=== PATIENT | female | born 1945 | race Caucasian/White ===

== ENCOUNTER 2018-09-27 10:14 | Outpatient (CLI) | payer MEDICARE, OTHER ==
--- NOTE | 2018-10-09 13:19 | MMO ---
Bilateral MAMMO Bilat Screen [facility]. CLINICAL HISTORY: Patient is 73 years old and is seen for screening. The patient has the following family history of breast cancer: mother, 1989, malignant (generic). The patient has a history of right Mastectomy in 1998 - malignant. VIEWS: The views performed were: left craniocaudal with tomosynthesis; left mediolateral oblique with tomosynthesis; and left exaggerated craniocaudal. FILMS COMPARED: The present examination has been compared to prior imaging studies performed at [facility] on 08/10/2011, 08/11/2012, 08/13/2013, 08/14/2014, 08/20/2015, 08/25/2016 and 09/21/2017. MAMMOGRAM FINDINGS: The breast is heterogeneously dense, which could obscure a lesion on mammography. There are benign appearing calcifications. There are no suspicious masses, calcifications or areas of architectural distortion. Nodularity is stable. IMPRESSION: FINDING IN THE LEFT BREAST IS BENIGN. A ROUTINE FOLLOW-UP MAMMOGRAM IN 1 YEAR IS RECOMMENDED. THE RESULTS OF THIS EXAM WERE SENT TO THE PATIENT. ACR BI-RADS Category 2 - Benign finding MAMMOGRAPHY NOTE: 1. A negative mammogram report should not delay a biopsy if a dominant of clinically suspicious mass is present. 2. Approximately 10% to 15% of breast cancers are not detected by mammography. 3. Adenosis and dense breasts may obscure an underlying neoplasm.
== END 2018-09-27 10:15 | disposition home or self-care (01) ==
LOC: BICMAMMO 10:14
PROVIDERS: ATTEND Nurse Practitioner
DX: Z12.31 Encounter for screening mammogram for malignant neoplasm of breast (principal); Z80.3 Family history of malignant neoplasm of breast; Z90.11 Acquired absence of right breast and nipple
CPT/HCPCS: 77063; 77067

== ENCOUNTER 2019-04-18 09:45 | Outpatient (CLI) | payer MEDICARE ==
--- NOTE | 2019-04-18 12:02 | BD ---
BONE DENSITOMETRY: Date: 04/18/19 HISTORY: Postmenopausal osteoporosis screening. FINDINGS: Lumbar Spine: BMD (g/cm2) L1 1.055 T-Score: 0.6 L2 1.106 T-Score: 0.7 L3 1.210 T-Score: 1.1 L4 1.101 T-Score: 0.4 Total 1.119 T-Score: 0.7 Left Femoral Neck: 0.679 T-Score: -1.5 Total Femur: 0.905 T-Score: -0.3 IMPRESSION: 1. Bone mineral density of the lumbar spine within normal range. 2. Bone mineral density of the femoral neck indicates osteopenia. 10 YEAR FRACTURE RISK: Major osteoporotic fracture: 9.5% Hip fracture: 1.8% POS: OFF
== END 2019-04-18 09:46 | disposition home or self-care (01) ==
LOC: BICMAMMO 09:45
PROVIDERS: ATTEND Nurse Practitioner
DX: M81.0 Age-related osteoporosis without current pathological fracture (principal); M85.859 Other specified disorders of bone density and structure, unspecified thigh
CPT/HCPCS: 77080

== ENCOUNTER 2019-10-01 10:28 | Outpatient (CLI) | payer MEDICARE ==
--- NOTE | 2019-10-01 11:42 | MMO ---
Bilateral MAMMO Bilat Screen [facility]. CLINICAL HISTORY: Patient is 74 years old and is seen for screening. The patient has the following family history of breast cancer: mother, 1989, malignant (generic). The patient has a history of right Mastectomy in 1998 - malignant. VIEWS: The views performed were: bilateral craniocaudal with tomosynthesis and bilateral mediolateral oblique with tomosynthesis. FILMS COMPARED: The present examination has been compared to prior imaging studies performed at [facility] on 08/20/2015, 08/25/2016 and 09/21/2017, and at [facility] on 09/27/2018. This study has been interpreted with the assistance of computer-aided detection. MAMMOGRAM FINDINGS: The breast is heterogeneously dense, which could obscure a lesion on mammography. There are stable benign appearing calcifications seen in the left breast. There are no suspicious masses, suspicious calcifications, or new areas of architectural distortion. IMPRESSION: THERE IS NO MAMMOGRAPHIC EVIDENCE OF MALIGNANCY. A ROUTINE FOLLOW-UP MAMMOGRAM IN 1 YEAR IS RECOMMENDED. THE RESULTS OF THIS EXAM WERE SENT TO THE PATIENT. ACR BI-RADS Category 2 - Benign finding MAMMOGRAPHY NOTE: 1. A negative mammogram report should not delay a biopsy if a dominant of clinically suspicious mass is present. 2. Approximately 10% to 15% of breast cancers are not detected by mammography. 3. Adenosis and dense breasts may obscure an underlying neoplasm. Reported by: ANGEL LUIS BUSTAMANTE MD Electonically Signed: [id number]
== END 2019-10-01 10:29 | disposition home or self-care (01) ==
LOC: BICMAMMO 10:28
PROVIDERS: ATTEND Nurse Practitioner
DX: Z12.31 Encounter for screening mammogram for malignant neoplasm of breast (principal); Z85.3 Personal history of malignant neoplasm of breast; Z90.11 Acquired absence of right breast and nipple
CPT/HCPCS: 77063; 77067

== ENCOUNTER 2020-10-09 10:40 | Outpatient (CLI) | payer MEDICARE | END 2020-10-09 10:41 | disposition home or self-care (01) | LOC: BICMAMMO 10:40 | PROVIDERS: ATTEND Nurse Practitioner | DX: Z12.31 Encounter for screening mammogram for malignant neoplasm of breast (principal); Z80.3 Family history of malignant neoplasm of breast; Z90.11 Acquired absence of right breast and nipple | CPT/HCPCS: 77063; 77067 ==

== ENCOUNTER 2021-05-05 10:51 | Outpatient (CLI) | payer MEDICARE | END 2021-05-05 10:52 | disposition home or self-care (01) | LOC: BICMAMMO 10:51 | PROVIDERS: ATTEND Nurse Practitioner | DX: Z13.820 Encounter for screening for osteoporosis (principal); Z78.0 Asymptomatic menopausal state; M85.851 Other specified disorders of bone density and structure, right thigh; M85.852 Other specified disorders of bone density and structure, left thigh | CPT/HCPCS: 77080 ==

== ENCOUNTER 2022-08-09 19:50 | Inpatient (IN) | payer MEDICARE ==
[2022-08-09] MEDS ORDERED: Ondansetron PF 4 MG/2 ML Vial IVP PRN (21:15)
[2022-08-09] MEDS ORDERED: Acetaminophen 325 MG TAB PO PRN (21:15)
[2022-08-09] MEDS ORDERED: Ondansetron ODT 4 MG TAB SL PRN (21:15)
[2022-08-09] MEDS ORDERED: Nitroglycerin 0.4 MG TAB (25 Tab Bottle) SL PRN (21:29)
[2022-08-09] MEDS ORDERED: HYDROcodone/Acetaminophen 5/325 mg Tablet PO PRN (21:29)
[2022-08-09] MEDS ORDERED: hydrALAZINE 20 MG/ML VIAL SLOW IVP PRN (21:36)
[2022-08-09] MEDS ORDERED: Metoprolol Tartrate 25 MG TAB PO SCH (21:36)
[2022-08-09] MEDS ORDERED: Losartan 25 MG TAB PO SCH (22:15)
[2022-08-09 22:28] VITALS: BMI 18.7
[2022-08-09] MEDS ORDERED: Atorvastatin Calcium 40 MG TAB PO SCH (23:00)
[2022-08-09] MEDS ORDERED: Acetaminophen 325 MG TAB ONE (23:35)
[2022-08-10 00:18] LABS: Critical Call Chem Troponin I RESULT DECREASING; Troponin I 0.824 ng/mL (< 0.028)
[2022-08-10 02:40] LABS: #Basophils 0.1 thou/uL (0.0-0.2); #Eosinphils 0.1 thou/uL (0.0-0.7); #Lymphocytes 1.9 thou/uL (1.20-3.40); #Monocytes 0.7 thou/uL (0.11-0.59); #Neutrophils 6.7 thou/uL (1.40-6.50); %Basophils 0.7 % (0.0-1.0); %Eosinophils 0.9 % (0.0-10.0); %Lymphocytes 20.3 % (21.0-51.0); %Monocytes 7.8 % (0.0-10.0); %Neutrophils 70.3 % (42.0-75.0); Hemoglobin 10.3 g/dL (12.0-16.0); Mean Corpuscular HGB CONC 33.3 g/dL (32.0-36.0); Mean Corpuscular Hemoglobin 31.8 pg (27.0-31.0); Mean Corpuscular Volume 95.4 fl (78.0-98.0); Mean Platelet Volume 7.5 fL (7.4-10.4); Platelet Count 282 10x3/uL (130-400); RBC Distribution Width 13.3 % (11.5-14.5); Red Blood Cell (RBC) Count 3.24 mill/uL (4.20-5.40); White Blood Cell (WBC) Count 9.5 10x3/uL (4.8-10.8)
[2022-08-10 03:06] LABS: Critical Call Chem Troponin I RESULT DECREASING; Troponin I 0.637 ng/mL (< 0.028)
[2022-08-10 03:07] LABS: Anion Gap 13 mmol/L (10-20); BUN (Urea Nitrogen) 23 mg/dL (9.8-20.1); Calc. Creatinine Clearance 51 mL/min (70-130); Carbon Dioxide 24 mmol/L (23-31); Cardiac Risk 6.6 (Less than 4.5); Chloride 105 mmol/L (98-107); Cholesterol 159 mg/dl (< 200 Desired); Estimated GFR 79; Glucose 95 mg/dL (83-110); HDL Cholesterol 24 mg/dL (>60 Neg Risk); LDL Cholesterol, Calculated 108 mg/dL; Sodium 138 mmol/L (136-145); Triglycerides 133 mg/dL (Less than 150)
[2022-08-10 03:56] LABS: SARS-CoV-2 NAA Rapid Test Not Detected (NotDetected)
[2022-08-10 07:15] LABS: Critical Call Chem Troponin I RESULT DECREASING; Troponin I 0.617 ng/mL (< 0.028)
[2022-08-10] MEDS ORDERED: Losartan 25 MG TAB PO SCH (09:00)
[2022-08-10] MEDS ORDERED: Metoprolol Tartrate 25 MG TAB PO SCH (09:00)
[2022-08-10] MEDS ORDERED: Aspirin Chewable 81 MG TAB ONE (09:28)
[2022-08-10] MEDS ORDERED: Metoprolol Tartrate 25 MG TAB ONE (09:28)
[2022-08-10] MEDS ORDERED: Famotidine 20 MG TAB ONE (09:28)
[2022-08-10] MEDS ORDERED: ALTEPLASE 50 MG/50 ML VIAL ONE (09:28)
[2022-08-10] MEDS: Aspirin Chewable 81 MG TAB PO SCH (09:37)
[2022-08-10] MEDS: Famotidine 20 MG TAB PO SCH (09:38)
[2022-08-10 10:18] LABS: Critical Call Chem Troponin I RESULT DECREASING
[2022-08-10] MEDS: Ezetimibe 10 MG TAB PO SCH (10:45)
[2022-08-10] MEDS ORDERED: Carvedilol 6.25 MG TAB PO SCH (18:00)
[2022-08-10] MEDS ORDERED: Communication Order-Pharmacy FS SCH (18:00)
[2022-08-10] MEDS: Atorvastatin Calcium 40 MG TAB PO SCH (20:41)
[2022-08-10] MEDS ORDERED: Atorvastatin Calcium 40 MG TAB PO SCH (21:00)
[2022-08-11] MEDS ORDERED: Sodium Chloride 0.9% 1,000 ML IV SCH ×2 (06:00→08:26)
[2022-08-11] MEDS: Aspirin Chewable 81 MG TAB PO SCH (06:01)
[2022-08-11] MEDS: Carvedilol 6.25 MG TAB PO SCH ×2 (06:01→16:29)
[2022-08-11] MEDS: Famotidine 20 MG TAB PO SCH (06:02)
[2022-08-11] MEDS: Ezetimibe 10 MG TAB PO SCH (06:02)
[2022-08-11] MEDS: Losartan 25 MG TAB PO SCH (06:02)
[2022-08-11] MEDS ORDERED: Lidocaine 1% (PF) 30 ML VIAL ONE (06:34)
[2022-08-11] MEDS ORDERED: Nitroglycerin 100MG/250ML BOT 250 ML ONE (06:34)
[2022-08-11] MEDS ORDERED: Heparin 10,000 UNITS/ 10 ML VIAL ONE (06:34)
[2022-08-11] MEDS ORDERED: FENTANYL 50 MCG/ML 1 ML VIAL ONE (07:00)
[2022-08-11] MEDS ORDERED: Midazolam HCl 2 mg/2 ml Vial ONE (07:00)
[2022-08-11] MEDS ORDERED: Protamine Sulfate 50 MG/5 ML VIAL ONE (08:04)
[2022-08-11] MEDS ORDERED: Acetaminophen/Codeine 30-300mg Tablet PO PRN ×2 (08:24)
[2022-08-11] MEDS ORDERED: Nitroglycerin 0.4 MG TAB (25 Tab Bottle) SL PRN (08:24)
[2022-08-11] MEDS ORDERED: Sodium Chloride 0.9% 200 ML IV PRN (08:24)
[2022-08-11] MEDS ORDERED: Iopamidol 370 76% 50 ML VIAL FS ONE (12:47)
[2022-08-11] MEDS ORDERED: Iopamidol 370 76% 100 ML VIAL ONE (12:47)
[2022-08-11] MEDS: Nitroglycerin 2% Ointment 1 INCH/1 GM Packet TOP SCH ×2 (14:15→22:14)
[2022-08-11 18:21] LABS: Bacteria/HPF None Seen HPF (None Seen); Bilirubin Negative (Negative); Blood, Urine Negative (Negative); CAUTI Indications for Culture Acute Hematuria; Clarity Clear (Clear); Glucose, Urine (Dipstick) Normal (Negative); Ketone, Urine Negative (Negative); Leukocyte 75 Leu/uL (Negative); Nitrite Negative (Negative); Protein, Urine (Dipstick) Negative (Neg-Trace); RBC/HPF 0-3 HPF (0-3); Squamous Epithelial 0-3 HPF (0-3); Urobilinogen Normal mg/dL (Less than 2); WBC/HPF 0-3 HPF (0-3)
[2022-08-11 18:25] LABS: Urine Culture Reflex No No
[2022-08-11] MEDS ORDERED: Communication Order-Pharmacy FS SCH (18:31)
[2022-08-11] MEDS: Atorvastatin Calcium 40 MG TAB PO SCH (21:17)
[2022-08-11] MEDS ORDERED: hydrOXYzine Pamoate 25 mg Capsule PO SCH (23:45)
[2022-08-12 02:27] LABS: Anion Gap 16 mmol/L (10-20); BUN (Urea Nitrogen) 18 mg/dL (9.8-20.1); Calc. Creatinine Clearance 51 mL/min (70-130); Calcium 9.1 mg/dL (7.8-10.44); Carbon Dioxide 22 mmol/L (23-31); Chloride 105 mmol/L (98-107); Estimated GFR 79; Glucose 107 mg/dL (83-110); Potassium 3.7 mmol/L (3.5-5.1); Sodium 139 mmol/L (136-145)
[2022-08-12 02:33] LABS: Troponin I 0.257 ng/mL (< 0.028)
[2022-08-12] MEDS: Nitroglycerin 2% Ointment 1 INCH/1 GM Packet TOP SCH (06:30)
[2022-08-12] MEDS: Carvedilol 6.25 MG TAB PO SCH (06:31)
[2022-08-12] MEDS: Losartan 25 MG TAB PO SCH (06:31)
[2022-08-12] MEDS ORDERED: Albumin 5% 500 ML ONE (07:09)
[2022-08-12] MEDS ORDERED: CEFAZOLIN 2 GM in Sodium Chloride 0.9% 100 ML IVPB SCH (09:00)
[2022-08-12] MEDS ORDERED: Heparin 10,000 UNITS/1 ML VIAL 30,000 UNITS in Sodium Chloride 0.9% 1,000 ML FS SCH (09:30)
[2022-08-12] MEDS ORDERED: Fentanyl 250 MCG/5 ML VIAL ONE ×3 (09:38)
[2022-08-12] MEDS ORDERED: Midazolam HCl 5 mg/5 ml Vial ONE (09:39)
[2022-08-12] MEDS ORDERED: Lidocaine 1% MPF 2 ML VIAL ONE (09:58)
[2022-08-12] MEDS ORDERED: Sodium Chloride 0.9% 100 ML ONE (10:07)
[2022-08-12] MEDS ORDERED: CEFAZOLIN 2 GM VIAL ONE (10:07)
[2022-08-12] MEDS ORDERED: Sodium Bicarb 50 MEQ/50 ML VIAL ONE (10:40)
[2022-08-12] MEDS ORDERED: Papaverine 60 MG/2 ML VIAL ONE (10:40)
[2022-08-12] MEDS ORDERED: Thrombin 5000 UNITS/5 ML VIAL ONE (10:40)
[2022-08-12] MEDS ORDERED: Protamine Sulfate 250 MG/25 ML VIAL ONE (10:40)
[2022-08-12] MEDS ORDERED: Magnesium 5 GM/10 ML VIAL ONE (10:40)
[2022-08-12] MEDS ORDERED: PROPOFOL 200 MG/20 ML VIAL ONE (10:40)
[2022-08-12] MEDS ORDERED: Mannitol 12.5 GM/50 ML ONE (10:40)
[2022-08-12] MEDS ORDERED: Lidocaine 2% PF 100 mg/5 ml Syringe ONE (10:40)
[2022-08-12] MEDS ORDERED: Calcium Chloride 1 GM/10 ML Abboject SYRINGE ONE (10:40)
[2022-08-12] MEDS ORDERED: ePHEDrine 50 MG/ML VIAL ONE (10:40)
[2022-08-12] MEDS ORDERED: Heparin 30,000 units/30 ml VIAL ONE (10:40)
[2022-08-12] MEDS ORDERED: Rocuronium Bromide 10 MG/ML (10ML VIAL) ONE (10:40)
[2022-08-12] MEDS ORDERED: Vancomycin 1 GM VIAL ONE (10:40)
[2022-08-12] MEDS ORDERED: Potassium Chloride 60 MEQ/30 ML VIAL ONE (10:40)
[2022-08-12] MEDS ORDERED: Lidocaine 1% PF 5 ML VIAL ONE (10:40)
[2022-08-12] MEDS ORDERED: Heparin 5,000 UNITS/ML VIAL ONE (10:40)
[2022-08-12] MEDS ORDERED: PHENYLEPHRINE-NS 100 MCG/ML 10 ML SYRINGE ONE (10:40)
[2022-08-12] MEDS ORDERED: Aminocaproic Acid 5 GM/20 ML VIAL ONE (10:40)
[2022-08-12] MEDS ORDERED: Cardioplegic Soln 1,000 ML BAG ONE (10:40)
[2022-08-12] MEDS ORDERED: Bisacodyl 10 MG SUPP PR PRN (14:05)
[2022-08-12] MEDS ORDERED: Ipratropium/Albuterol 3 ML NEB NEB PRN (14:05)
[2022-08-12] MEDS ORDERED: NOREPINEPHRINE 8 MG/250 ML-D5W 250 ML IVPB PRN (14:05)
[2022-08-12] MEDS ORDERED: HYDROcodone/Acetaminophen 5/325 mg Tablet PO PRN (14:05)
[2022-08-12] MEDS ORDERED: Acetaminophen 325 MG TAB PO PRN (14:05)
[2022-08-12] MEDS ORDERED: Bisacodyl 5 MG TAB PO PRN (14:05)
[2022-08-12] MEDS ORDERED: Guaifenesin DM 100-10/5 ML UDCUP PO PRN (14:05)
[2022-08-12] MEDS ORDERED: niCARdipine 25 MG in Sodium Chloride 0.9% 250 ML 250 ML IVPB PRN (14:05)
[2022-08-12] MEDS ORDERED: Mag-Al 1200 mg/1200 mg/30 ML UDCUP PO PRN (14:05)
[2022-08-12] MEDS ORDERED: Fentanyl 100 MCG/2 ML VIAL SLOW IVP PRN (14:05)
[2022-08-12] MEDS ORDERED: hydrALAZINE 20 MG/ML VIAL SLOW IVP PRN (14:05)
[2022-08-12] MEDS ORDERED: Ondansetron PF 4 MG/2 ML Vial IVP PRN (14:05)
[2022-08-12] MEDS ORDERED: Hetastarch 6% 500 ML 500 ML IVPB PRN (14:05)
[2022-08-12 14:22] LABS: Actual Bicarbonate (HCO3a) 20.7 mEq/L (22-28); Base Excess (BEa) -3.7 mEq/L (-2.0 to +3.0); CO2 Tension 35.6 mmHg (35.0-45.0); Calcium, Ionized (arterial) 1.24 mmol/L (1.12-1.30); O2 Tension (PaO2), arterial 235.1 mmHg (> 70.0); pH, Arterial 7.38 (7.35-7.45)
[2022-08-12 14:25] LABS: Puncture Site Arterial Line
[2022-08-12 14:30] LABS: #Basophils 0.1 thou/uL (0.0-0.2); #Eosinphils 0.2 thou/uL (0.0-0.7); #Lymphocytes 2.2 thou/uL (1.20-3.40); #Monocytes 0.5 thou/uL (0.11-0.59); %Basophils 0.7 % (0.0-1.0); %Eosinophils 1.1 % (0.0-10.0); %Lymphocytes 14.8 % (21.0-51.0); %Monocytes 3.1 % (0.0-10.0); %Neutrophils 80.3 % (42.0-75.0); Hemoglobin 10.6 g/dL (12.0-16.0); Mean Corpuscular HGB CONC 33.1 g/dL (32.0-36.0); Mean Corpuscular Hemoglobin 31.3 pg (27.0-31.0); Mean Corpuscular Volume 94.6 fl (78.0-98.0); Mean Platelet Volume 8.3 fL (7.4-10.4); Platelet Count 154 10x3/uL (130-400); RBC Distribution Width 13.7 % (11.5-14.5); Red Blood Cell (RBC) Count 3.38 mill/uL (4.20-5.40); White Blood Cell (WBC) Count 14.9 10x3/uL (4.8-10.8)
[2022-08-12] MEDS ORDERED: HUMULIN R 100 UNITS in Sodium Chloride 0.9% 100 ML IVPB SCH (14:30)
[2022-08-12] MEDS ORDERED: Dextrose 5% in Water 1,000 ML IV PRN (14:30)
[2022-08-12] MEDS ORDERED: Insulin Regular 300 UNITS/3 ML VIAL SC PRN (14:30)
[2022-08-12] MEDS ORDERED: Dextrose 50% Abboject 50 ML SYRINGE SLOW IVP PRN (14:30)
[2022-08-12] MEDS: Morphine 4 MG/ML VIAL SLOW IVP PRN ×2 (14:35→15:45)
[2022-08-12 14:41] LABS: INR-International Normal Ratio 1.4; Prothrombin Time 17.8 sec (12.0-14.7)
[2022-08-12 14:42] LABS: PTT 30.6 sec (22.9-36.1)
[2022-08-12 14:47] LABS: Anion Gap 14 mmol/L (10-20); BUN (Urea Nitrogen) 14 mg/dL (9.8-20.1); Calc. Creatinine Clearance 60 mL/min (70-130); Calcium 8.5 mg/dL (7.8-10.44); Carbon Dioxide 19 mmol/L (23-31); Chloride 110 mmol/L (98-107); Estimated GFR 92; Glucose 104 mg/dL (83-110); Potassium 3.7 mmol/L (3.5-5.1); Sodium 139 mmol/L (136-145)
[2022-08-12] MEDS: Fentanyl 100 MCG/2 ML VIAL SLOW IVP PRN ×3 (14:53→19:24)
[2022-08-12] MEDS: Lactated Ringer's 500 ML IV SCH (14:56)
[2022-08-12] MEDS: Potassium Chloride 20 MEQ/100 ML PREMIX BAG IVPB PRN (16:04)
[2022-08-12 16:48] LABS: Actual Bicarbonate (HCO3a) 16.1 mEq/L (22-28); CO2 Tension 28.8 mmHg (35.0-45.0); Calcium, Ionized (arterial) 1.21 mmol/L (1.12-1.30); Carboxyhemoglobin (COHb) 0.7 gm% (0.0-3.0); Potassium - ABG Lab 4.64 mmol/L (3.70-5.30); pH, Arterial 7.37 (7.35-7.45)
[2022-08-12] MEDS: Ketorolac Tromethamine 30 MG/ML VIAL IVP SCH ×2 (17:00→23:53)
[2022-08-12 17:01] LABS: Puncture Site Arterial Line
[2022-08-12] MEDS: CEFAZOLIN 2 GM in Sodium Chloride 0.9% 100 ML IVPB SCH (17:01)
[2022-08-12 19:46] LABS: Potassium 4.4 mmol/L (3.5-5.1)
[2022-08-12] MEDS ORDERED: Atorvastatin Calcium 20 MG TAB PO SCH (21:00)
[2022-08-12] MEDS ORDERED: Famotidine/PF 20 mg/2ml Vial SLOW IVP SCH (21:00)
[2022-08-13] MEDS: Lactated Ringer's 500 ML IV SCH (00:18)
[2022-08-13] MEDS: CEFAZOLIN 2 GM in Sodium Chloride 0.9% 100 ML IVPB SCH ×2 (01:55→09:29)
[2022-08-13 04:53] LABS: Anion Gap 18 mmol/L (10-20); BUN (Urea Nitrogen) 16 mg/dL (9.8-20.1); Calc. Creatinine Clearance 45 mL/min (70-130); Calcium 8.1 mg/dL (7.8-10.44); Carbon Dioxide 17 mmol/L (23-31); Chloride 111 mmol/L (98-107); Estimated GFR 73; Glucose 104 mg/dL (83-110); Potassium 4.2 mmol/L (3.5-5.1); Sodium 142 mmol/L (136-145)
[2022-08-13] MEDS: Ketorolac Tromethamine 30 MG/ML VIAL IVP SCH ×3 (05:23→17:27)
[2022-08-13] MEDS ORDERED: Sodium Bicarbonate 50 MEQ in Sodium Chloride 0.45% 1,000 ML IV SCH (08:00)
[2022-08-13] MEDS: Aspirin 325 MG TAB PO SCH (08:53)
[2022-08-13] MEDS: HYDROcodone/Acetaminophen 5/325 mg Tablet PO PRN (08:59)
[2022-08-13] MEDS ORDERED: Famotidine/PF 20 mg/2ml Vial SLOW IVP SCH (09:00)
[2022-08-13 11:12] LABS: #Lymphocytes 1.5 thou/uL (1.20-3.40); #Monocytes 1.2 thou/uL (0.11-0.59); #Neutrophils 10.3 thou/uL (1.40-6.50); %Basophils 0.1 % (0.0-1.0); %Eosinophils 0.1 % (0.0-10.0); %Lymphocytes 11.5 % (21.0-51.0); %Monocytes 8.9 % (0.0-10.0); %Neutrophils 79.4 % (42.0-75.0); Hemoglobin 8.3 g/dL (12.0-16.0); Mean Corpuscular HGB CONC 32.5 g/dL (32.0-36.0); Mean Corpuscular Hemoglobin 31.1 pg (27.0-31.0); Mean Corpuscular Volume 95.6 fl (78.0-98.0); Mean Platelet Volume 8.7 fL (7.4-10.4); Platelet Count 150 10x3/uL (130-400); Red Blood Cell (RBC) Count 2.67 mill/uL (4.20-5.40)
[2022-08-13] MEDS ORDERED: Insulin Glargine 30 UNITS/0.3 ML VIAL SC PRN (14:26)
[2022-08-13] MEDS: Atorvastatin Calcium 40 MG TAB PO SCH (21:12)
[2022-08-13] MEDS: Famotidine/PF 20 mg/2ml Vial SLOW IVP SCH (21:13)
[2022-08-14] MEDS: Ketorolac Tromethamine 30 MG/ML VIAL IVP SCH ×4 (00:10→18:37)
[2022-08-14 04:08] LABS: #Lymphocytes 1.7 thou/uL (1.20-3.40); #Monocytes 1.4 thou/uL (0.11-0.59); #Neutrophils 10.2 thou/uL (1.40-6.50); %Basophils 0.3 % (0.0-1.0); %Eosinophils 0.2 % (0.0-10.0); %Lymphocytes 12.9 % (21.0-51.0); %Monocytes 10.7 % (0.0-10.0); Hemoglobin 8.1 g/dL (12.0-16.0); Mean Corpuscular HGB CONC 33.3 g/dL (32.0-36.0); Mean Corpuscular Hemoglobin 31.6 pg (27.0-31.0); Mean Corpuscular Volume 94.9 fl (78.0-98.0); Mean Platelet Volume 9.1 fL (7.4-10.4); Platelet Count 138 10x3/uL (130-400); Red Blood Cell (RBC) Count 2.55 mill/uL (4.20-5.40); White Blood Cell (WBC) Count 13.5 10x3/uL (4.8-10.8)
[2022-08-14 04:25] LABS: ALT (SGPT) 11 U/L (8-55); AST (SGOT) 35 U/L (5-34); Albumin 3.3 g/dL (3.4-4.8); Alkaline Phosphatase 42 U/L (40-110); Anion Gap 14 mmol/L (10-20); BUN (Urea Nitrogen) 23 mg/dL (9.8-20.1); Bilirubin, Total 0.9 mg/dL (0.2-1.2); Calc. Creatinine Clearance 52 mL/min (70-130); Calcium 8.2 mg/dL (7.8-10.44); Carbon Dioxide 20 mmol/L (23-31); Chloride 110 mmol/L (98-107); Estimated GFR 76; Globulin 2.3 g/dL (2.4-3.5); Glucose 112 mg/dL (83-110); Magnesium 2.2 mg/dL (1.6-2.6); Potassium 3.7 mmol/L (3.5-5.1); Protein, Total 5.6 g/dL (5.8-8.1); Sodium 140 mmol/L (136-145)
[2022-08-14] MEDS: Potassium Chloride 20 MEQ/100 ML PREMIX BAG IVPB PRN (09:20)
[2022-08-14] MEDS: Aspirin 325 MG TAB PO SCH (09:21)
[2022-08-14] MEDS: Famotidine/PF 20 mg/2ml Vial SLOW IVP SCH (09:22)
[2022-08-14] MEDS ORDERED: Nitroglycerin 0.4 MG TAB (25 Tab Bottle) SL PRN (10:16)
[2022-08-14] MEDS: HYDROcodone/Acetaminophen 5/325 mg Tablet PO PRN (21:27)
[2022-08-14] MEDS: Famotidine 20 MG TAB PO SCH (21:29)
[2022-08-14] MEDS: Atorvastatin Calcium 40 MG TAB PO SCH (21:29)
[2022-08-15] MEDS: Ketorolac Tromethamine 30 MG/ML VIAL IVP SCH ×4 (00:45→17:32)
[2022-08-15 04:57] LABS: #Basophils 0.1 thou/uL (0.0-0.2); #Eosinphils 0.2 thou/uL (0.0-0.7); #Lymphocytes 2.2 thou/uL (1.20-3.40); #Monocytes 1.2 thou/uL (0.11-0.59); #Neutrophils 7.5 thou/uL (1.40-6.50); %Basophils 0.5 % (0.0-1.0); %Eosinophils 1.4 % (0.0-10.0); %Lymphocytes 19.7 % (21.0-51.0); %Monocytes 10.9 % (0.0-10.0); %Neutrophils 67.5 % (42.0-75.0); Hemoglobin 7.9 g/dL (12.0-16.0); Mean Corpuscular HGB CONC 33.8 g/dL (32.0-36.0); Mean Corpuscular Volume 94.9 fl (78.0-98.0); Mean Platelet Volume 9.4 fL (7.4-10.4); Platelet Count 148 10x3/uL (130-400); RBC Distribution Width 13.8 % (11.5-14.5); Red Blood Cell (RBC) Count 2.46 mill/uL (4.20-5.40); White Blood Cell (WBC) Count 11.1 10x3/uL (4.8-10.8)
[2022-08-15 05:22] LABS: ALT (SGPT) 14 U/L (8-55); AST (SGOT) 35 U/L (5-34); Alkaline Phosphatase 57 U/L (40-110); Anion Gap 8 mmol/L (10-20); BUN (Urea Nitrogen) 27 mg/dL (9.8-20.1); Bilirubin, Total 1.3 mg/dL (0.2-1.2); Calc. Creatinine Clearance 60 mL/min (70-130); Calcium 8.2 mg/dL (7.8-10.44); Carbon Dioxide 25 mmol/L (23-31); Chloride 109 mmol/L (98-107); Estimated GFR 87; Globulin 2.4 g/dL (2.4-3.5); Glucose 105 mg/dL (83-110); Potassium 3.7 mmol/L (3.5-5.1); Protein, Total 5.4 g/dL (5.8-8.1); Sodium 138 mmol/L (136-145)
[2022-08-15] MEDS: Aspirin 325 MG TAB PO SCH (10:24)
[2022-08-15] MEDS: Furosemide 20 MG TAB PO SCH (10:24)
[2022-08-15] MEDS: Docusate 100 MG CAP PO SCH ×2 (10:24→21:49)
[2022-08-15] MEDS: Famotidine 20 MG TAB PO SCH ×2 (10:24→21:49)
[2022-08-15] MEDS: Potassium Chloride 10 MEQ TAB PO SCH (10:24)
[2022-08-15] MEDS: Atorvastatin Calcium 40 MG TAB PO SCH (21:49)
[2022-08-15] MEDS: HYDROcodone/Acetaminophen 5/325 mg Tablet PO PRN (21:50)
[2022-08-16 05:30] LABS: #Eosinphils 0.2 thou/uL (0.0-0.7); #Lymphocytes 2.2 thou/uL (1.20-3.40); #Monocytes 1.1 thou/uL (0.11-0.59); #Neutrophils 5.6 thou/uL (1.40-6.50); %Basophils 0.5 % (0.0-1.0); %Eosinophils 2.5 % (0.0-10.0); Hemoglobin 8.1 g/dL (12.0-16.0); Mean Corpuscular HGB CONC 32.8 g/dL (32.0-36.0); Mean Corpuscular Hemoglobin 31.4 pg (27.0-31.0); Mean Corpuscular Volume 95.6 fl (78.0-98.0); Platelet Count 209 10x3/uL (130-400); RBC Distribution Width 13.8 % (11.5-14.5); Red Blood Cell (RBC) Count 2.57 mill/uL (4.20-5.40); White Blood Cell (WBC) Count 9.2 10x3/uL (4.8-10.8)
[2022-08-16 06:18] LABS: Anion Gap 11 mmol/L (10-20); BUN (Urea Nitrogen) 17 mg/dL (9.8-20.1); Calc. Creatinine Clearance 56 mL/min (70-130); Calcium 8.1 mg/dL (7.8-10.44); Carbon Dioxide 25 mmol/L (23-31); Chloride 109 mmol/L (98-107); Estimated GFR 84; Glucose 100 mg/dL (83-110); Magnesium 2.2 mg/dL (1.6-2.6); Potassium 4.1 mmol/L (3.5-5.1); Sodium 141 mmol/L (136-145)
[2022-08-16 07:59] VITALS: TEMP 98.7
[2022-08-16] MEDS: Aspirin 325 MG TAB PO SCH (08:47)
[2022-08-16] MEDS: Furosemide 20 MG TAB PO SCH (08:47)
[2022-08-16] MEDS: Docusate 100 MG CAP PO SCH (08:47)
[2022-08-16] MEDS: Famotidine 20 MG TAB PO SCH (08:47)
[2022-08-16] MEDS: Potassium Chloride 10 MEQ TAB PO SCH (08:49)
[2022-08-16] MEDS ORDERED: Metoprolol Tartrate 25 MG TAB PO SCH (09:00)
[2022-08-16] MEDS ORDERED: Multivit, Therapeutic 1 TAB PO SCH (09:00)
[2022-08-16 12:07] VITALS: BP 148/70
== END 2022-08-16 12:30 | disposition home or self-care (01) | DRG 234 ==
LOC: ERS 19:50 → ERHOLD 20:59 → 2SW 08-10 15:48 → CCU 08-12 09:02 → 2NO 08-14 22:27
PROVIDERS: ADMIT Internal Medicine; ATTEND Internal Medicine
PROC: 4A023N7 Measurement of Cardiac Sampling and Pressure, Left Heart, Percutaneous Approach (ICD-10-PCS; 2022-08-11)
PROC: B2151ZZ Fluoroscopy of Left Heart using Low Osmolar Contrast (ICD-10-PCS; 2022-08-11)
PROC: B2111ZZ Fluoroscopy of Multiple Coronary Arteries using Low Osmolar Contrast (ICD-10-PCS; 2022-08-11)
PROC: 02100Z9 Bypass Coronary Artery, One Artery from Left Internal Mammary, Open Approach (ICD-10-PCS; principal; 2022-08-12)
PROC: 021209W Bypass Coronary Artery, Three Arteries from Aorta with Autologous Venous Tissue, Open Approach (ICD-10-PCS; 2022-08-12)
PROC: 06BP3ZZ Excision of Right Saphenous Vein, Percutaneous Approach (ICD-10-PCS; 2022-08-12)
PROC: 3E033XZ Introduction of Vasopressor into Peripheral Vein, Percutaneous Approach (ICD-10-PCS; 2022-08-12)
PROC: 5A1221Z Performance of Cardiac Output, Continuous (ICD-10-PCS; 2022-08-12)
PROC: 02L70CK Occlusion of Left Atrial Appendage with Extraluminal Device, Open Approach (ICD-10-PCS; 2022-08-12)
PROC: 30233N1 Transfusion of Nonautologous Red Blood Cells into Peripheral Vein, Percutaneous Approach (ICD-10-PCS; 2022-08-12)
DX: I21.4 Non-ST elevation (NSTEMI) myocardial infarction (principal); N17.9 Acute kidney failure, unspecified; E87.20 Acidosis, unspecified; I25.10 Atherosclerotic heart disease of native coronary artery without angina pectoris; Z20.822 Contact with and (suspected) exposure to COVID-19; N18.2 Chronic kidney disease, stage 2 (mild); I12.9 Hypertensive chronic kidney disease with stage 1 through stage 4 chronic kidney disease, or unspecified chronic kidney disease; D72.829 Elevated white blood cell count, unspecified; R31.9 Hematuria, unspecified; J44.9 Chronic obstructive pulmonary disease, unspecified; I08.1 Rheumatic disorders of both mitral and tricuspid valves; D63.1 Anemia in chronic kidney disease; E78.00 Pure hypercholesterolemia, unspecified; Z85.3 Personal history of malignant neoplasm of breast; Z90.11 Acquired absence of right breast and nipple; Z80.3 Family history of malignant neoplasm of breast; Z82.3 Family history of stroke; Z82.49 Family history of ischemic heart disease and other diseases of the circulatory system; Z87.891 Personal history of nicotine dependence
CPT/HCPCS: 36415; 36416; 36430; 71045; 80048; 80053; 80061; 81001; 82805; 83735; 84443; 84484; 85025; 85347; 85610; 85730; 86850; 86900; 86901; 87811; 93005; 93010; 93306; 93458; 93798; 94002; 94760; 99152; 99153; C1751; C1769; C1776; J1642; J1644; J1650; J1885; J2001; J2150; J2250; J2270; J2440; J2704; J2720; J2997; J3010; J3370; J3475; J3480; J3490; J7050; J7120; P9016; P9045; Q0177; S0017; S0028; U0002

== ENCOUNTER 2022-10-27 12:39 | Outpatient (CLI) | payer MEDICARE | END 2022-10-27 12:40 | disposition home or self-care (01) | LOC: BICMAMMO 12:39 | PROVIDERS: ATTEND Nurse Practitioner | DX: Z12.31 Encounter for screening mammogram for malignant neoplasm of breast (principal) | CPT/HCPCS: 77063; 77067 ==

== ENCOUNTER 2023-05-16 10:17 | Outpatient (CLI) | payer MEDICARE | END 2023-05-16 10:18 | disposition home or self-care (01) | LOC: BICMAMMO 10:17 | PROVIDERS: ATTEND Nurse Practitioner | DX: Z13.820 Encounter for screening for osteoporosis (principal); M85.852 Other specified disorders of bone density and structure, left thigh; M85.851 Other specified disorders of bone density and structure, right thigh; Z78.0 Asymptomatic menopausal state | CPT/HCPCS: 77080 ==

== ENCOUNTER 2023-05-22 12:52 | Emergency (ER) | payer MEDICARE ==
[2023-05-22 13:43] LABS: #Monocytes 0.9 thou/uL (0.11-0.59); #Neutrophils 8.3 thou/uL (1.40-6.50); %Basophils 0.4 % (0.0-1.0); %Eosinophils 0.2 % (0.0-10.0); %Lymphocytes 12.5 % (21.0-51.0); %Monocytes 8.8 % (0.0-10.0); %Neutrophils 77.7 % (42.0-75.0); Hematocrit 32.6 % (36.0-47.0); Hemoglobin 10.8 g/dL (12.0-16.0); Mean Corpuscular HGB CONC 33.1 g/dL (32.0-36.0); Mean Corpuscular Hemoglobin 30.4 pg (27.0-31.0); Mean Corpuscular Volume 91.8 fl (78.0-98.0); Mean Platelet Volume 10.2 fL (7.4-10.4); Platelet Count 217 10x3/uL (130-400); RBC Distribution Width 15.1 % (11.5-14.5); Red Blood Cell (RBC) Count 3.55 mill/uL (4.20-5.40); White Blood Cell (WBC) Count 10.7 10x3/uL (4.8-10.8)
[2023-05-22 14:08] LABS: ALT (SGPT) 39 U/L (8-55); AST (SGOT) 49 U/L (5-34); Albumin 3.6 g/dL (3.4-4.8); Alkaline Phosphatase 77 U/L (40-110); Anion Gap 14 mmol/L (10-20); BUN (Urea Nitrogen) 22 mg/dL (9.8-20.1); Bilirubin, Total 0.8 mg/dL (0.2-1.2); CK (CPK) 27 U/L (29-168); Calc. Creatinine Clearance 0 mL/min (70-130); Calcium 8.2 mg/dL (7.8-10.44); Carbon Dioxide 24 mmol/L (23-31); Chloride 105 mmol/L (98-107); Estimated GFR 72; Globulin 3.5 g/dL (2.4-3.5); Glucose 99 mg/dL (83-110); Magnesium 2.1 mg/dL (1.6-2.6); Potassium 4.6 mmol/L (3.5-5.1); Protein, Total 7.1 g/dL (5.8-8.1); Sodium 138 mmol/L (136-145)
[2023-05-22 14:16] LABS: Troponin I Less than 0.010 ng/mL (< 0.028)
[2023-05-22] MEDS ORDERED: Bacitracin 1 PK ONE (16:09)
[2023-05-22 16:35] LABS: Bacteria/HPF None Seen HPF (None Seen); Bilirubin Negative (Negative); Blood, Urine Trace (Negative); CAUTI Indications for Culture Alt mental st,lethar; Clarity Clear (Clear); Glucose, Urine (Dipstick) Normal (Negative); Ketone, Urine Negative (Negative); Leukocyte Negative Leu/uL (Negative); Nitrite Negative (Negative); Protein, Urine (Dipstick) Negative (Neg-Trace); RBC/HPF 0-3 HPF (0-3); Squamous Epithelial None Seen HPF (0-3); Urobilinogen Normal mg/dL (Less than 2); WBC/HPF 0-3 HPF (0-3)
[2023-05-22 16:36] LABS: Urine Culture Reflex No No
== END 2023-05-22 16:15 | disposition home or self-care (01) ==
LOC: ERS 12:52
DX: J18.9 Pneumonia, unspecified organism (principal)
CPT/HCPCS: 36415; 71045; 80053; 81001; 82550; 83735; 84484; 85025; 93005